=== PATIENT | male | born 1965 | race Asian ===

== ENCOUNTER 2024-01-12 16:50 | Emergency (ER) | payer BC ==
[~2024-01-12] VITALS: Ht 165.1 cm; Wt 88.2 kg
[2024-01-12] MEDS: ACETAMINOPHEN 500 MG TAB PO ONE (17:43)
[2024-01-12] MEDS: KETOROLAC 30 MG/ML 1ML VIAL IV ONE (17:43)
[2024-01-12 18:09] LABS: BASO % 0.1 % (0.0-1.0); EOS % 0.1 % (0.0-3.0); HEMATOCRIT 41.6 % (42.0-52.0); HEMOGLOBIN 14.4 g/dl (13.5-17.5); LYMPH # 1.3 10^3/uL (1.5-5.0); MEAN CORPUSCULAR HGB CONC 34.6 g/dl (32.0-36.5); MEAN CORPUSCULAR VOLUME 83.7 fl (80.0-96.0); MONO % 9.6 % (2.0-8.0); NEUTROPHILS # 8.5 10^3/uL (1.5-8.5); NEUTROPHILS % 77.8 % (36.0-66.0); PLATELET COUNT, AUTOMATED 213 10^3/uL (150-450); RED BLOOD COUNT 4.97 10^6/uL (4.30-6.10); WHITE BLOOD COUNT 10.9 10^3/uL (4.0-10.0)
[2024-01-12] MEDS: NS 1,000 ML IV ONE (18:12)
[2024-01-12 18:25] LABS: PROCALCITONIN 0.82 ng/ml
[2024-01-12 18:34] LABS: ALBUMIN 2.9 G/DL (3.2-5.2); ALKALINE PHOSPHATASE 196 U/L (46-116); ALT/SGPT 509 U/L (7.0-40); AST/SGOT 1000.00001 U/L (<34); BILIRUBIN,DIRECT 0.6 MG/DL (<0.4); BILIRUBIN,TOTAL 1.1 MG/DL (0.3-1.2); BLOOD UREA NITROGEN 23 MG/DL (9-23); CARBON DIOXIDE LEVEL 22 MMOL/L (20-31); CHLORIDE LEVEL 100 MMOL/L (98-107); CREATININE FOR GFR 1.29 MG/DL (0.70-1.30); GLOMERULAR FILTRATION RATE > 60.0 (>56); GLUCOSE, FASTING 140 MG/DL (60-100); POTASSIUM SERUM 3.6 MMOL/L (3.5-5.1); SODIUM LEVEL 133 MMOL/L (136-145); TOTAL PROTEIN 7.3 G/DL (5.7-8.2)
[2024-01-12] MEDS ORDERED: ISOVUE-370 76% 100ML VIAL As Ordered ONE (18:47)
[2024-01-12 19:06] LABS: MONO SCRN NEGATIVE (NEGATIVE)
[2024-01-12 19:19] LABS: HEPATITIS B SURFACE ANTIGEN NEGATIVE (NEGATIVE)
[2024-01-12 19:40] LABS: HEPATITIS B CORE ANTIBODY IGM NEGATIVE (NEGATIVE); HEPATITIS C VIRUS ABY INDEX < 0.02 INDEX (<0.8)
[2024-01-12] MEDS ORDERED: AZIT-12 PO (20:54)
[2024-01-12] MEDS ORDERED: AMOX500C PO (20:54)
[2024-01-12] MEDS: AZITHROMYCIN 250MG TABLET PO ONE (21:04)
[2024-01-12] MEDS: cefTRIAXone SOD 2 GM in D5W MINI-BAG PLUS 50 ML IV ONE (21:05)
[2024-01-12 21:45] VITALS: BP 118/59; TEMP 98.4; O2SAT 96
== END 2024-01-12 22:07 | disposition home or self-care (01) ==
LOC: M ED 16:50
DX: J18.9 Pneumonia, unspecified organism (principal); R00.0 Tachycardia, unspecified; I10 Essential (primary) hypertension; Z79.2 Long term (current) use of antibiotics
CPT/HCPCS: 71045; 71260; 74177; 80048; 80074; 80076; 81001; 83605; 84145; 85025; 86140; 86308; 87040; 87086; 87486; 87581; 87633; 87798; 93005; 93041; 94760; 96361; 96374; 96375; 99285; J0696; J1885; Q9967

== ENCOUNTER 2024-03-20 08:56 | Inpatient (IN) | payer OTHER, BC ==
[~2024-03-20] VITALS: Ht 165.1 cm; Wt 84.7 kg
[~2024-03-20 08:56] MED LIST: AMOX500C PO; AZIT-12 PO; UNRESOLVED CLARIFICATION ENTRY XX SCH
[2024-03-20] MEDS ORDERED: DEXTROSE 50% 50ML SYRINGE IV PRN (09:05)
[2024-03-20] MEDS ORDERED: SIMETHICONE 80MG CHEW TAB PO PRN (09:05)
[2024-03-20] MEDS ORDERED: ONDANSETRON 4MG TAB PO PRN (09:05)
[2024-03-20] MEDS ORDERED: GLUCAGON INJ 1MG VIAL SC PRN (09:05)
[2024-03-20] MEDS ORDERED: MAALOX 30 ML SUSP *UDC PO PRN (09:05)
[2024-03-20] MEDS ORDERED: GLUCOSE 4 GM CHEW PO PRN (09:05)
[2024-03-20] MEDS ORDERED: diphenhydrAMINE 25MG CAP PO PRN (09:05)
[2024-03-20 11:10] VITALS: BP 111/59; TEMP 97.8; O2SAT 97
[2024-03-20] MEDS ORDERED: INSULIN LISPRO (NovoLOG) PER UNIT SC SCH ×2 (12:00→21:00)
[2024-03-20] MEDS ORDERED: METF-839 PO (12:30)
[2024-03-20] MEDS ORDERED: ACET1TAB55 PO (12:30)
[2024-03-20] MEDS ORDERED: ENOX40IN3 SC (12:30)
[2024-03-20] MEDS ORDERED: METO1TAB32 PO (12:30)
[2024-03-20] MEDS ORDERED: FLOM0.4C39 PO (12:30)
[2024-03-20] MEDS ORDERED: MOM30SS2 PO (12:30)
[2024-03-20] MEDS ORDERED: METH-1165 PO (12:30)
[2024-03-20] MEDS ORDERED: SENN-186 PO (12:30)
[2024-03-20] MEDS ORDERED: GABA-282 PO (12:30)
[2024-03-20] MEDS ORDERED: PRAS10TA2 PO (12:30)
[2024-03-20] MEDS ORDERED: IBUP1TAB6 PO (12:30)
[2024-03-20] MEDS ORDERED: GLYC1SUP38 PR (12:30)
[2024-03-20] MEDS ORDERED: ASPI81CH33 PO (12:30)
[2024-03-20] MEDS ORDERED: ROSU10TA61 PO (12:30)
[2024-03-20] MEDS ORDERED: POLY17PO18 PO (12:30)
[2024-03-20] MEDS ORDERED: OXYC-517 PO ×2 (12:30)
[2024-03-20] MEDS ORDERED: DOCU100C16 PO (12:30)
[2024-03-20] MEDS ORDERED: MIDO5TA PO (12:30)
[2024-03-20] MEDS ORDERED: HOME MED LIST COMPLETE! XX SCH (12:35)
[2024-03-20] MEDS ORDERED: IBUPROFEN 600MG TAB PO SCH (13:00)
[2024-03-20] MEDS ORDERED: methocarbamoL 750 MG TAB PO SCH (13:00)
[2024-03-20] MEDS ORDERED: GLYCERIN ADULT SUPP PR PRN (13:15)
[2024-03-20] MEDS: GABAPENTIN 300 MG CAP PO SCH (17:12)
[2024-03-20] MEDS: MIDODRINE 5 MG TAB PO SCH (17:12)
[2024-03-20] MEDS: methocarbamoL 750 MG TAB PO SCH (17:12)
[2024-03-20] MEDS: IBUPROFEN 600MG TAB PO SCH (17:13)
[2024-03-20 20:10] VITALS: BP 134/64; TEMP 97.8; O2SAT 96
[2024-03-20] MEDS: SENNA 8.6 MG TAB (SENOKOT) PO SCH (20:24)
[2024-03-20] MEDS: MOM 30ML SUSPENSION UDC PO SCH (20:24)
[2024-03-20] MEDS: oxyCODONE 5MG TAB PO PRN (20:25)
[2024-03-20] MEDS ORDERED: ATORVASTATIN 20 MG TAB PO SCH (21:00)
[2024-03-21 05:00] VITALS: BP 134/79; TEMP 97; O2SAT 98
[2024-03-21] MEDS: ASPIRIN 81MG CHEW TABLET PO SCH (07:24)
[2024-03-21] MEDS: METOPROLOL SUCC *XL* 25MG TAB (TopROL *XL*) PO SCH (07:25)
[2024-03-21] MEDS: ROSUVASTATIN 10 MG TAB (CRESTOR) PO SCH (07:26)
[2024-03-21] MEDS: MIRALAX *UNIT DOSE* 17GM PACKET PO SCH (07:26)
[2024-03-21] MEDS: metFORMIN (GLUCOPHAGE) 500MG TAB PO SCH (07:26)
[2024-03-21 08:07] LABS: HEMATOCRIT 35.2 % (42.0-52.0); HEMOGLOBIN 11.3 g/dl (13.5-17.5); MEAN CORPUSCULAR HEMOGLOBIN 28.4 pg (27.0-33.0); MEAN CORPUSCULAR HGB CONC 32.1 g/dl (32.0-36.5); MEAN CORPUSCULAR VOLUME 88.4 fl (80.0-96.0); PLATELET COUNT, AUTOMATED 253 10^3/uL (150-450); RED BLOOD COUNT 3.98 10^6/uL (4.30-6.10); WHITE BLOOD COUNT 8.9 10^3/uL (4.0-10.0)
[2024-03-21 08:36] LABS: BLOOD UREA NITROGEN 17 MG/DL (9-23); CALCIUM LEVEL 9.8 MG/DL (8.5-10.1); CARBON DIOXIDE LEVEL 26 MMOL/L (20-31); CHLORIDE LEVEL 108 MMOL/L (98-107); CREATININE FOR GFR 0.98 MG/DL (0.70-1.30); GLOMERULAR FILTRATION RATE > 60.0 (>56); GLUCOSE, FASTING 173 MG/DL (60-100); POTASSIUM SERUM 4.4 MMOL/L (3.5-5.1); SODIUM LEVEL 140 MMOL/L (136-145)
[2024-03-21] MEDS: ENOXAPARIN 40MG/0.4ML SYRINGE (J1650 PER 10MG) SC SCH (11:04)
[2024-03-21 12:00] VITALS: BP 133/80; TEMP 97.5; O2SAT 98
[2024-03-21 20:00] VITALS: BP 125/68; TEMP 97.3; O2SAT 98
[2024-03-21] MEDS: oxyCODONE 5MG TAB PO PRN (20:49)
[2024-03-21] MEDS: TAMSULOSIN 0.4 MG CAP PO SCH (20:50)
[2024-03-22] MEDS ORDERED: ASPIRIN 81MG CHEW TABLET As Ordered ONE (09:24)
[2024-03-22] MEDS ORDERED: MIRALAX *UNIT DOSE* 17GM PACKET As Ordered ONE (09:24)
[2024-03-22] MEDS ORDERED: GABAPENTIN 300 MG CAP As Ordered ONE (09:24)
[2024-03-22] MEDS ORDERED: ENOXAPARIN 40MG/0.4ML SYRINGE (J1650 PER 10MG) As Ordered ONE (09:24)
[2024-03-22] MEDS ORDERED: MIDODRINE 5 MG TAB As Ordered ONE (09:25)
[2024-03-22] MEDS ORDERED: METOPROLOL SUCC *XL* 25MG TAB (TopROL *XL*) As Ordered ONE (09:25)
[2024-03-22] MEDS ORDERED: ROSUVASTATIN 10 MG TAB (CRESTOR) As Ordered ONE (09:25)
[2024-03-22] MEDS ORDERED: methocarbamoL 500 MG TAB As Ordered ONE (09:26)
[2024-03-22] MEDS ORDERED: metFORMIN (GLUCOPHAGE) 500MG TAB As Ordered ONE (09:26)
[2024-03-22] MEDS ORDERED: oxyCODONE 5MG TAB As Ordered ONE (09:52)
[2024-03-22 12:00] VITALS: BP 135/71; TEMP 97.9; O2SAT 100
[2024-03-22] MEDS ORDERED: GLYCERIN ADULT SUPP PR ONE (15:00)
[2024-03-22 20:00] VITALS: BP 115/65; TEMP 97.6; O2SAT 98
[2024-03-23 04:00] VITALS: BP 130/65; TEMP 97.7; O2SAT 98
[2024-03-23 07:23] LABS: HEMATOCRIT 36.1 % (42.0-52.0); HEMOGLOBIN 11.9 g/dl (13.5-17.5); MEAN CORPUSCULAR HEMOGLOBIN 29.3 pg (27.0-33.0); MEAN CORPUSCULAR VOLUME 88.9 fl (80.0-96.0); PLATELET COUNT, AUTOMATED 305 10^3/uL (150-450); RED BLOOD COUNT 4.06 10^6/uL (4.30-6.10); WHITE BLOOD COUNT 8.2 10^3/uL (4.0-10.0)
[2024-03-23 12:00] VITALS: BP 110/63; TEMP 98.2; O2SAT 99
[2024-03-23 20:00] VITALS: BP 118/59; TEMP 97.6; O2SAT 99
[2024-03-24 04:00] VITALS: BP 101/58; TEMP 97.6; O2SAT 97
[2024-03-24 12:00] VITALS: BP 116/72; TEMP 97.9; O2SAT 100
[2024-03-24 20:09] VITALS: BP 144/72; TEMP 98.1; O2SAT 94
[2024-03-25 04:56] VITALS: BP 116/64; TEMP 98.1; O2SAT 99
[2024-03-25 12:00] VITALS: BP 139/72; TEMP 97.9; O2SAT 98
[2024-03-25] MEDS: GABAPENTIN 400MG CAP PO SCH (17:54)
[2024-03-25] MEDS: DOCUSATE SODIUM 100MG CAPSULE PO SCH (19:38)
[2024-03-25] MEDS: BISACODYL 10MG SUPP PR PRN (19:38)
[2024-03-25 20:00] VITALS: BP 146/72; TEMP 98; O2SAT 100
[2024-03-26 04:00] VITALS: BP 136/66; TEMP 97.7; O2SAT 97
[2024-03-26 06:38] LABS: HEMATOCRIT 37.8 % (42.0-52.0); HEMOGLOBIN 12.4 g/dl (13.5-17.5); MEAN CORPUSCULAR HGB CONC 32.8 g/dl (32.0-36.5); MEAN CORPUSCULAR VOLUME 88.3 fl (80.0-96.0); PLATELET COUNT, AUTOMATED 340 10^3/uL (150-450); RED BLOOD COUNT 4.28 10^6/uL (4.30-6.10); WHITE BLOOD COUNT 7.7 10^3/uL (4.0-10.0)
[2024-03-26 07:05] LABS: ALBUMIN 3.5 G/DL (3.2-5.2); ALKALINE PHOSPHATASE 86 U/L (46-116); ALT/SGPT 28 U/L (7.0-40); AST/SGOT 15 U/L (<34); BILIRUBIN,TOTAL 0.4 MG/DL (0.3-1.2); BLOOD UREA NITROGEN 19 MG/DL (9-23); CALCIUM LEVEL 9.8 MG/DL (8.5-10.1); CARBON DIOXIDE LEVEL 27 MMOL/L (20-31); CHLORIDE LEVEL 106 MMOL/L (98-107); CREATININE FOR GFR 1.03 MG/DL (0.70-1.30); GLOMERULAR FILTRATION RATE > 60.0 (>56); GLUCOSE, FASTING 88 MG/DL (60-100); POTASSIUM SERUM 4.4 MMOL/L (3.5-5.1); SODIUM LEVEL 141 MMOL/L (136-145); TOTAL PROTEIN 6.7 G/DL (5.7-8.2)
[2024-03-26 07:53] LABS: HEMOGLOBIN A1c 6.1 % (4.0-6.0)
[2024-03-26] MEDS: ACETAMINOPHEN TAB 650MG DOSE (2X325MG) PO PRN (08:15)
[2024-03-26 12:00] VITALS: BP 119/59; TEMP 97.5; O2SAT 97
[2024-03-26] MEDS: PRASUGREL 10MG TABLET (PATIENT'S OWN MED) PO SCH (16:02)
[2024-03-26 20:00] VITALS: BP 128/65; TEMP 97.9; O2SAT 99
[2024-03-27 04:00] VITALS: BP 118/64; TEMP 97.7; O2SAT 99
[2024-03-27 12:00] VITALS: BP 130/67; TEMP 97.7; O2SAT 97
[2024-03-27] MEDS: GABAPENTIN 400MG CAP PO SCH (15:44)
[2024-03-27] MEDS: MIDODRINE 2.5 MG TAB PO SCH (16:00)
[2024-03-27 20:00] VITALS: BP 131/70; TEMP 98.2; O2SAT 98
[2024-03-27] MEDS: GABAPENTIN 300 MG CAP PO SCH (20:37)
[2024-03-27] MEDS: oxyCODONE 5MG TAB PO PRN (20:38)
[2024-03-28 04:00] VITALS: BP 121/70; TEMP 97.1; O2SAT 96
[2024-03-28] MEDS: DICLOFENAC EPOLAMINE 1.3% PATCH TOP SCH (09:00)
[2024-03-28 12:00] VITALS: BP 132/69; TEMP 98; O2SAT 98
[2024-03-28 20:00] VITALS: BP 133/74; TEMP 98.3; O2SAT 99
[2024-03-29 04:00] VITALS: BP 120/56; TEMP 97.2; O2SAT 100
[2024-03-29 08:28] VITALS: BP 128/55
[2024-03-29] MEDS ORDERED: ROSU10TA61 PO (11:19)
[2024-03-29] MEDS ORDERED: METF-839 PO (11:19)
[2024-03-29] MEDS ORDERED: POLY17PO18 PO (11:19)
[2024-03-29] MEDS ORDERED: GABA-284 PO (11:19)
[2024-03-29] MEDS ORDERED: OXYC-517 PO (11:19)
[2024-03-29] MEDS ORDERED: METO1TAB32 PO (11:19)
[2024-03-29] MEDS ORDERED: PRAS10TA2 PO (11:19)
[2024-03-29] MEDS ORDERED: METH-1164 PO (11:19)
[2024-03-29] MEDS ORDERED: GABA600T4 PO (11:19)
== END 2024-03-29 12:15 | disposition home or self-care (01) | DRG 347 ==
LOC: M PM&R 10:44
PROVIDERS: ADMIT Physical Medicine & Rehabilitation; ATTEND Student in an Organized Health Care Education/Training Program
DX: M48.02 Spinal stenosis, cervical region (principal); I25.10 Atherosclerotic heart disease of native coronary artery without angina pectoris; I10 Essential (primary) hypertension; E78.5 Hyperlipidemia, unspecified; K59.2 Neurogenic bowel, not elsewhere classified; N31.9 Neuromuscular dysfunction of bladder, unspecified; Z74.1 Need for assistance with personal care; Z74.09 Other reduced mobility; I95.1 Orthostatic hypotension; R73.03 Prediabetes; R73.9 Hyperglycemia, unspecified; G62.9 Polyneuropathy, unspecified; G89.18 Other acute postprocedural pain; M62.838 Other muscle spasm; G82.52 Quadriplegia, C1-C4 incomplete; Z79.2 Long term (current) use of antibiotics; Z95.5 Presence of coronary angioplasty implant and graft

== ENCOUNTER → 2024-04-03 | Outpatient (CLI) | payer OTHER, BC ==
[~2024-04-03] MED LIST changes: +ACET1TAB55 PO; +ASPI81CH33 PO; +DOCU100C16 PO; +ENOX40IN3 SC; +FLOM0.4C39 PO; +GABA-282 PO; +GABA-284 PO; +GABA600T4 PO; +GLYC1SUP38 PR; +IBUP1TAB6 PO; +METF-839 PO; +METH-1164 PO; +METH-1165 PO; +METO1TAB32 PO; +MIDO5TA PO; +MOM30SS2 PO; +OXYC-517 PO; +POLY17PO18 PO; +PRAS10TA2 PO; +ROSU10TA61 PO; +SENN-186 PO; -UNRESOLVED CLARIFICATION ENTRY XX SCH
== END ==
LOC: M WHC 09:44
PROVIDERS: ATTEND Physician Assistant Medical
DX: M79.89 Other specified soft tissue disorders (principal)

== ENCOUNTER 2024-04-26 11:03 | Outpatient (RCR) | payer OTHER, BC ==
[~2024-04-26 11:03] MED LIST changes: +GABA-1490 PO; -GABA600T4 PO
== END 2024-05-04 ==
LOC: M PT 11:03
PROVIDERS: ATTEND Student in an Organized Health Care Education/Training Program
DX: M50.01 Cervical disc disorder with myelopathy, high cervical region (principal)

== ENCOUNTER → 2024-04-30 | Outpatient (CLI) | payer BC ==
[~2024-04-30] MED LIST changes: -GABA-1490 PO; +GABA600T4 PO
[2024-04-30 11:30] LABS: HEMOGLOBIN A1c 6.7 % (4.0-6.0)
[2024-04-30 11:50] LABS: ALBUMIN 3.8 G/DL (3.2-5.2); ALKALINE PHOSPHATASE 88 U/L (46-116); ALT/SGPT 22 U/L (7.0-40); AST/SGOT 18 U/L (<34); BILIRUBIN,TOTAL 0.3 MG/DL (0.3-1.2); BLOOD UREA NITROGEN 19 MG/DL (9-23); CALCIUM LEVEL 10.2 MG/DL (8.5-10.1); CARBON DIOXIDE LEVEL 26 MMOL/L (20-31); CHLORIDE LEVEL 106 MMOL/L (98-107); CHOLESTEROL LEVEL 134 MG/DL (<200); CHOLESTEROL RISK RATIO 3.44 (<5); CREATININE FOR GFR 0.91 MG/DL (0.70-1.30); GLOMERULAR FILTRATION RATE > 60.0 (>56); GLUCOSE, FASTING 202 MG/DL (60-100); HDL CHOLESTEROL 38.9 MG/DL (>40); LDL CHOLESTEROL 62.7 MG/DL (<100); NON-HDL-C 95.1 MG/DL; POTASSIUM SERUM 4.4 MMOL/L (3.5-5.1); SODIUM LEVEL 140 MMOL/L (136-145); TOTAL PROTEIN 7.4 G/DL (5.7-8.2); TRIGLYCERIDES LEVEL 162 MG/DL (<150)
[2024-04-30 11:53] LABS: THYROID STIMULATING HORMONE 0.834 uIU/ML (0.55-4.78)
[2024-04-30 11:55] LABS: TOTAL 25(OH) VITAMIN D 22.2 NG/ML (20.0-100.0)
[2024-04-30 12:20] LABS: HIV 1&2 SCREEN NEGATIVE (NEGATIVE)
[2024-04-30 12:26] LABS: HEPATITIS C VIRUS ABY INDEX < 0.02 INDEX (<0.8)
[2024-04-30 13:22] LABS: CREATININE, URINE 69.7 MG/DL; MALB URINE SIEMENS < 3.0 MG/L; MAU/CREAT RATIO 4.3 MCG/MG (0.0-30.0)
== END ==
LOC: M LAB 10:07
PROVIDERS: ATTEND Physician Assistant
DX: Z11.9 Encounter for screening for infectious and parasitic diseases, unspecified (principal); I10 Essential (primary) hypertension

== ENCOUNTER 2024-05-09 08:09 | Outpatient (RCR) | payer OTHER, BC ==
[~2024-05-09 08:09] MED LIST changes: +GABA-1172 PO; +GABA-1490 PO; -GABA-282 PO; -GABA600T4 PO
== END 2024-06-03 ==
LOC: M PT 08:09
PROVIDERS: ATTEND Student in an Organized Health Care Education/Training Program
DX: M50.00 Cervical disc disorder with myelopathy, unspecified cervical region (principal)

== ENCOUNTER → 2024-06-26 | Outpatient (REF) | payer OTHER, BC ==
[2024-06-26 17:48] LABS: BASO % 0.4 % (0.0-1.0); EOS # 0.4 10^3/uL (0.0-0.5); EOS % 4.1 % (0.0-3.0); HEMATOCRIT 43.4 % (42.0-52.0); HEMOGLOBIN 14.7 g/dl (13.5-17.5); LYMPH # 4.1 10^3/uL (1.5-5.0); LYMPH % 45.1 % (24.0-44.0); MEAN CORPUSCULAR HEMOGLOBIN 28.3 pg (27.0-33.0); MEAN CORPUSCULAR HGB CONC 33.9 g/dl (32.0-36.5); MEAN CORPUSCULAR VOLUME 83.6 fl (80.0-96.0); MONO # 0.8 10^3/uL (0.0-0.8); MONO % 8.6 % (2.0-8.0); NEUTROPHILS # 3.8 10^3/uL (1.5-8.5); NEUTROPHILS % 41.5 % (36.0-66.0); PLATELET COUNT, AUTOMATED 248 10^3/uL (150-450); RED BLOOD COUNT 5.19 10^6/uL (4.30-6.10); WHITE BLOOD COUNT 9.1 10^3/uL (4.0-10.0)
[2024-06-26 18:49] LABS: FREE T4 1.19 NG/DL (0.89-1.76)
[2024-06-26 18:50] LABS: THYROID STIMULATING HORMONE 1.097 uIU/ML (0.55-4.78)
[2024-06-26 18:51] LABS: BLOOD UREA NITROGEN 18 MG/DL (9-23); CALCIUM LEVEL 10.4 MG/DL (8.5-10.1); CARBON DIOXIDE LEVEL 24 MMOL/L (20-31); CHLORIDE LEVEL 106 MMOL/L (98-107); CREATININE FOR GFR 0.92 MG/DL (0.70-1.30); GLOMERULAR FILTRATION RATE > 60.0 (>56); GLUCOSE, FASTING 254 MG/DL (60-100); POTASSIUM SERUM 4.5 MMOL/L (3.5-5.1); SODIUM LEVEL 136 MMOL/L (136-145)
== END ==
LOC: M LAB REF 16:29
PROVIDERS: ATTEND Physician Assistant
DX: R42 Dizziness and giddiness (principal)

== ENCOUNTER 2024-07-02 12:15 | Outpatient (RCR) | payer OTHER, BC | END 2024-07-04 | LOC: M PT 12:15 | PROVIDERS: ATTEND Student in an Organized Health Care Education/Training Program | DX: R26.89 Other abnormalities of gait and mobility (principal) ==

== ENCOUNTER → 2024-07-05 | Outpatient (CLI) | payer OTHER, BC | LOC: M PLAIMG 12:03 | PROVIDERS: ATTEND Physician Assistant | DX: R42 Dizziness and giddiness (principal) ==

== ENCOUNTER 2024-07-29 12:45 | Outpatient (RCR) | payer OTHER, BC | END 2024-08-03 | LOC: M PT 12:45 | PROVIDERS: ATTEND Physician Assistant | DX: R26.89 Other abnormalities of gait and mobility (principal) ==

== ENCOUNTER 2024-08-22 13:30 | Outpatient (RCR) | payer OTHER, BC | END 2024-09-03 | LOC: M PT 13:30 | PROVIDERS: ATTEND Physician Assistant | DX: E26.89 Other hyperaldosteronism (principal) ==

== ENCOUNTER → 2024-11-28 | Outpatient (CLI) | payer BC | LOC: M SLEEP HO 11-27 11:22 | PROVIDERS: ATTEND Internal Medicine Cardiovascular Disease | DX: G47.33 Obstructive sleep apnea (adult) (pediatric) (principal) ==

== ENCOUNTER → 2024-12-03 | Outpatient (REF) | LOC: M PLAIMG 10:29 | PROVIDERS: ATTEND Internal Medicine | DX: M47.816 Spondylosis without myelopathy or radiculopathy, lumbar region (principal); M19.011 Primary osteoarthritis, right shoulder ==

== ENCOUNTER → 2025-04-01 | Outpatient (REF) | payer BC ==
[~2025-04-01] MED LIST changes: -FLOM0.4C39 PO; +TAMS-18 PO
[2025-04-01 17:48] LABS: ALT/SGPT 42 U/L (7.0-40); AST/SGOT 31 U/L (<34); CALCIUM LEVEL 9.4 MG/DL (8.5-10.1); CARBON DIOXIDE LEVEL 23 MMOL/L (20-31); CHLORIDE LEVEL 105 MMOL/L (98-107); CHOLESTEROL LEVEL 116 MG/DL (<200); CHOLESTEROL RISK RATIO 3.07 (<5); CREATININE FOR GFR 0.92 MG/DL (0.70-1.30); GLOMERULAR FILTRATION RATE > 90.0 (>56); LDL CHOLESTEROL 36.9 MG/DL (<100); NON-HDL-C 78.3 MG/DL; POTASSIUM SERUM 4.3 MMOL/L (3.5-5.1); SODIUM LEVEL 141 MMOL/L (136-145); TRIGLYCERIDES LEVEL 207 MG/DL (<150)
[2025-04-01 18:07] LABS: APPEARANCE, URINE CLEAR (CLEAR); BACTERIA, URINE AUTO NEGATIVE (NEGATIVE); BILIRUBIN, URINE AUTO NEGATIVE (NEGATIVE); BLOOD, URINE BLOOD 1+ (NEGATIVE); GLUCOSE, URINE (UA) AUTO 3+ mg/dL (NEGATIVE); KETONE, URINE AUTO NEGATIVE (NEGATIVE); LEUKOCYTE ESTERASE, URINE AUTO NEGATIVE (NEGATIVE); MUCUS, URINE SMALL (NEGATIVE); NITRITE, URINE AUTO NEGATIVE (NEGATIVE); PROTEIN, URINE AUTO NEGATIVE (NEGATIVE); RBC, URINE AUTO 2 /HPF (0-3); SPECIFIC GRAVITY URINE AUTO 1.028 (1.002-1.035); SQUAMOUS EPITHELIAL CELL UR AU 0 /HPF (0-6); UROBILINOGEN, URINE AUTO 0.2 mg/dL (0.0-2.0); WBC, URINE AUTO 0 /HPF (0-3)
[2025-04-01 18:21] LABS: CREATININE, URINE 79.6 MG/DL; MALB URINE SIEMENS < 3.0 MG/L
[2025-04-01 18:26] LABS: ESTIMATED AVERAGE GLUCOSE 154.0 MG/DL (60-110)
== END ==
LOC: M LAB REF 16:23
PROVIDERS: ATTEND Physician Assistant
DX: I10 Essential (primary) hypertension (principal); E78.5 Hyperlipidemia, unspecified; E11.9 Type 2 diabetes mellitus without complications